=== PATIENT | female | born 1980 | race Asian ===

== ENCOUNTER 2020-04-03 06:35 | Outpatient (CLI) | payer BC ==
--- NOTE | 2020-04-03 08:33 | Mammography Report ---
BILATERAL DIGITAL DIAGNOSTIC MAMMOGRAM WITH CAD , 04/03/2020 LEFT LIMITED BREAST ULTRASOUND CLINICAL INFORMATION / INDICATION: Left nipple pain. TECHNIQUE: Digital bilateral mammographic imaging was performed. Limited ultrasound was performed. Th is examination was interpreted with the benefit of Computer-Aided Detection (CAD) analysis. COMPARISON: None available FINDINGS: Breast Density: There are scattered areas of fibroglandular density. MAMMOGRAPHIC FINDINGS: No dominant mass, suspicious calcifications, or architectural distortion in ei ther breast. No mammographic correlate to account for the patient's complaint of left breast pain. ULTRASOUND FINDINGS: Targeted ultrasound evaluation was performed of the area of interest. Sonograp hic evaluation of the left breast in the subareolar region, corresponding to patient's area of pain, does not reveal any abnormality. There is no mass, cyst, or suspicious area of shadowing identified. IMPRESSION: No mammographic or sonographic evidence of malignancy. Follow up recommendation: Clinical correlation for complaint of left breast pain. Unless otherwise cl inically indicated, patient should continue annual screening mammography at age 40. BI-RADS Category 2: Benign. A "normal" or negative report should not discourage follow up or biopsy of a clinically significant f inding. A written summary of these findings will be mailed to the patient. The patient will be entered into a mammography reporting system which will generate a reminder letter for the patient's next appointmen t at the appropriate interval. According to the [employer], yearly mammograms are recommended starting at age 40 and continuing as long as a woman is in good health. Breast MRI is recommended for women with an asa roximately 20-25% or greater lifetime risk of breast cancer, including women with a strong family his tory of breast or ovarian cancer and women who have been treated for Hodgkin's disease. Signer Name: Chantell Garner MD Signed: 04/03/2020 8:29 AM Workstation Name: [id number]
== END 2020-04-03 06:36 | disposition home or self-care (01) ==
LOC: MAMMO 06:35
PROVIDERS: ATTEND Obstetrics & Gynecology
DX: N64.4 Mastodynia (principal)
CPT/HCPCS: 77066